=== PATIENT | female | born 1990 | race Caucasian/White ===

== ENCOUNTER 2018-01-08 21:08 | Emergency (ER) | payer SELFPAY ==
[~2018-01-08] VITALS: Ht 167.6 cm; Wt 79.0 kg
[2018-01-09] MEDS ORDERED: IBUPROFEN 800MG TABLET PO ONE (01:00)
[2018-01-09 02:21] VITALS: BP 118/64
== END 2018-01-09 02:21 | disposition home or self-care (01) ==
LOC: ER 21:08
DX: N64.4 Mastodynia (principal); E66.9 Obesity, unspecified; Z88.8 Allergy status to other drugs, medicaments and biological substances
CPT/HCPCS: 76642; 81025; 99284